=== PATIENT | male | born 1990 | race Caucasian/White ===

== ENCOUNTER 2019-04-16 21:58 | Observation (INO) | payer OTHER ==
[~2019-04-16 21:58] MED LIST: Iopamidol-370 76% 500 ML 1 ML ONE
[2019-04-16] MEDS ORDERED: Adacel (T-DAP) 0.5 ML SYRINGE ONE (22:06)
[2019-04-16 22:19] LABS: #Basophils 0.2 thou/uL (0.0-0.2); #Eosinphils 0.3 thou/uL (0.0-0.7); #Lymphocytes 4.3 thou/uL (1.20-3.40); #Monocytes 0.5 thou/uL (0.11-0.59); #Neutrophils 6.3 thou/uL (1.40-6.50); %Eosinophils 2.4 % (0.0-10.0); %Lymphocytes 36.8 % (21.0-51.0); %Monocytes 4.6 % (0.0-10.0); %Neutrophils 54.3 % (42.0-75.0); Hemoglobin 15.5 g/dL (14.0-18.0); Mean Corpuscular HGB CONC 33.9 g/dL (32.0-36.0); Mean Corpuscular Hemoglobin 31.8 pg (27.0-31.0); Mean Corpuscular Volume 93.8 fL (78.0-98.0); Mean Platelet Volume 7.6 fL (7.4-10.4); Platelet Count 251 thou/uL (130-400); Red Blood Cell (RBC) Count 4.86 mill/uL (4.70-6.10); White Blood Cell (WBC) Count 11.6 thou/uL (4.8-10.8)
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
[2019-04-16 22:39] LABS: ALT (SGPT) 20 U/L (8-55); AST (SGOT) 25 U/L (5-34); Acetaminophen Less than 6.0 mcg/mL (10.0-30.0); Alcohol 235 mg/dL (Less than 10); Alkaline Phosphatase 85 U/L (40-110); Anion Gap 16 mmol/L (10-20); BUN (Urea Nitrogen) 14 mg/dL (8.9-20.6); Bilirubin, Total 0.3 mg/dL (0.2-1.2); Calc. Creatinine Clearance 0 mL/min (70-130); Calcium 8.9 mg/dL (7.8-10.44); Carbon Dioxide 24 mmol/L (22-29); Chloride 105 mmol/L (98-107); Estimated GFR-MDRD 79; Globulin 2.9 g/dL (2.4-3.5); Glucose 110 mg/dL (70-105); Potassium 3.4 mmol/L (3.5-5.1); Protein, Total 7.9 g/dL (6.0-8.3); Salicylate Less than 8.0 mg/dL (15.0-30.0); Sodium 142 mmol/L (136-145)
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
[2019-04-17] MEDS ORDERED: Ondansetron PF 4 MG/2 ML Vial IVP PRN (00:27)
[2019-04-17] MEDS ORDERED: Dextrose 5% in Water 1,000 ML IV PRN (00:27)
[2019-04-17] MEDS ORDERED: Dextrose 50% Abboject 50 ML SYRINGE SLOW IVP PRN (00:27)
[2019-04-17] MEDS ORDERED: hydrALAZINE 20 MG/ML VIAL SLOW IVP PRN (00:27)
[2019-04-17] MEDS ORDERED: Cyclobenzaprine 10 MG TAB PO PRN (00:31)
[2019-04-17] MEDS ORDERED: traMADol HCl 50 MG TAB PO PRN (00:31)
[2019-04-17] MEDS ORDERED: Potassium Chloride 20 MEQ TAB PO SCH (00:45)
[2019-04-17 01:17] VITALS: BMI 22.3
[2019-04-17] MEDS: Sodium Chloride 0.9% 1,000 ML IV SCH ×2 (01:29→11:37)
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
[2019-04-17] MEDS: Acetaminophen 500 MG TAB PO SCH ×3 (05:48→18:27)
[2019-04-17] MEDS: Ibuprofen 600 MG TAB PO SCH ×3 (05:49→20:59)
[2019-04-17] MEDS ORDERED: Oxazepam 10 MG CAP PO SCH (06:00)
[2019-04-17 06:15] LABS: Amphetamine Not Detected (NotDetected); Barbiturates Screen Not Detected (NotDetected); Benzodiazepine Screen Not Detected (NotDetected); Cocaine Metabolite Screen Not Detected (NotDetected); Medtox Control Line Valid? VALID (VALID); Medtox Reader # READER 1; Methadone Not Detected (NotDetected); Methamphetamine Not Detected (NotDetected); Opiate Screen Not Detected (NotDetected); Oxycodone Screen Not Detected (NotDetected); Phencyclidine (PCP) Not Detected (NotDetected); THC/Cannabinoid Screen Not Detected (NotDetected); Tricyclic Screen Not Detected (NotDetected)
[2019-04-17] MEDS: Thiamine 100 MG TAB PO SCH (08:30)
[2019-04-17] MEDS: Gabapentin 300 MG CAP PO SCH ×3 (08:30→20:59)
[2019-04-17] MEDS: Multivitamin W/ Minerals 1 TAB PO SCH (08:30)
[2019-04-17] MEDS: Senokot S 8.6-50 MG TAB PO SCH ×2 (08:30→20:59)
[2019-04-17] MEDS: Famotidine/PF 20 mg/2ml Vial SLOW IVP SCH ×2 (08:30→20:58)
[2019-04-17] MEDS: Polyethylene Glycol 3350 17 GM Packet PO SCH (08:30)
[2019-04-17] MEDS: Folic Acid 1 MG TAB PO SCH (08:30)
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
[2019-04-17] MEDS: traMADol HCl 50 MG TAB PO PRN (14:16)
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
[2019-04-18] MEDS: Acetaminophen 500 MG TAB PO SCH ×3 (00:24→11:49)
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
[2019-04-18] MEDS: Ibuprofen 600 MG TAB PO SCH (05:19)
[2019-04-18] MEDS: traMADol HCl 50 MG TAB PO PRN ×2 (05:46→11:49)
--- NOTE | 2019-04-18 09:28 | PRG ---
DATE OF SERVICE: 04/18/2019 Mr. Bustamante has received his TLSO clamshell. We will work with Physical Therapy today. He may be discharged whenever he meets criteria. Followup has been arranged. Job ID: [id number]
[2019-04-18] MEDS: Multivitamin W/ Minerals 1 TAB PO SCH (09:38)
[2019-04-18] MEDS: Folic Acid 1 MG TAB PO SCH (09:38)
[2019-04-18] MEDS: Thiamine 100 MG TAB PO SCH (09:38)
[2019-04-18] MEDS: Famotidine/PF 20 mg/2ml Vial SLOW IVP SCH (09:38)
[2019-04-18] MEDS: Gabapentin 300 MG CAP PO SCH (09:38)
[2019-04-18] MEDS: Senokot S 8.6-50 MG TAB PO SCH (09:47)
[2019-04-18] MEDS: Polyethylene Glycol 3350 17 GM Packet PO SCH (09:47)
[2019-04-18 11:40] VITALS: BP 134/83; TEMP 98.6
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
== END 2019-04-18 12:53 | disposition home or self-care (01) ==
LOC: ERS 21:58 → SURG A 04-17 00:53
PROVIDERS: ADMIT Specialist; ATTEND Specialist
DX: S22.080A Wedge compression fracture of T11-T12 vertebra, initial encounter for closed fracture (principal); F10.129 Alcohol abuse with intoxication, unspecified; E87.6 Hypokalemia; F17.200 Nicotine dependence, unspecified, uncomplicated; S51.012A Laceration without foreign body of left elbow, initial encounter; S00.01XA Abrasion of scalp, initial encounter; Z88.1 Allergy status to other antibiotic agents; V89.2XXA Person injured in unspecified motor-vehicle accident, traffic, initial encounter; Y90.7 Blood alcohol level of 200-239 mg/100 ml
CPT/HCPCS: 36415; 70450; 71260; 72125; 74177; 80053; 80306; 80307; 85025; 86850; 86900; 86901; 90471; 90715; 96361; 96365; 96366; 96375; 96376; G0378; G0390; J0690; Q9967; S0028